=== PATIENT | male | born 1960 | race American Indian/Alaskan Native ===

== ENCOUNTER 2019-07-15 02:26 | Emergency (ER) | payer MEDICARE ==
[2019-07-15] MEDS ORDERED: HYDROcodone/ACETAMINOPHEN 5-325 MG TAB PO STA (06:28)
--- NOTE | 2019-07-15 06:48 | Emergency Department Report ---
ED Extremity Problem HPI - General Chief complaint: Extremity Injury, Lower Stated complaint: RT LEG PAIN Time Seen by Provider: 07/15/19 06:27 Source: patient, EMS Mode of arrival: Wheelchair Limitations: Physical Limitation - History of Present Illness MD Complaint: extremity pain -: Sudden, hour(s) (5) Location: right History of Same: No -: Yes myalgia Severity scale (0 -10): 6 Consistency: constant Improves with: nothing Worsens with: nothing Associated Symptoms: denies: chest pain, shortness of breath, myalgias, arthralgias - Related Data Previous Rx's Medication Instructions Recorded Last Taken Type Ketorolac [Toradol] 10 mg PO Q6H PRN #10 tablet 07/15/19 Unknown Rx Allergies Allergy/AdvReac Type Severity Reaction Status Date / Time latex Allergy Unknown Verified 07/15/19 02:31 ED Review of Systems ROS: Stated complaint: RT LEG PAIN Other details as noted in HPI Comment: All other systems reviewed and negative ED Past Medical Hx - Past Medical History Previous Medical History?: Yes Hx Hypertension: Yes - Surgical History Past Surgical History?: Yes Additional Surgical History: right AKA - Social History Smoking Status: Never Smoker Substance Use Type: Alcohol - Medications Home Medications: Home Medications Medication Instructions Recorded Confirmed Last Taken Type Ketorolac [Toradol] 10 mg PO Q6H PRN #10 tablet 07/15/19 Unknown Rx ED Physical Exam - General Limitations: Physical Limitation General appearance: alert, in no apparent distress - Head Head exam: Present: atraumatic, normocephalic - Eye Eye exam: Present: normal appearance - ENT ENT exam: Present: mucous membranes moist - Neck Neck exam: Present: normal inspection - Respiratory Respiratory exam: Present: normal lung sounds bilaterally. Absent: respiratory distress - Cardiovascular Cardiovascular Exam: Present: regular rate, normal rhythm. Absent: systolic murmur, diastolic murmur, rubs, gallop - GI/Abdominal GI/Abdominal exam: Present: soft, normal bowel sounds - Rectal Rectal exam: Present: deferred - Extremities Exam Extremities exam: Present: normal inspection, tenderness (and the base of the stump with palpation. There is no swelling, no cellulitis, no warmth. No fluctuance. No broken skin no rashes) - Back Exam Back exam: Present: normal inspection. Absent: CVA tenderness (R), CVA tenderness (L) - Neurological Exam Neurological exam: Present: alert, oriented X3, CN II-XII intact - Psychiatric Psychiatric exam: Present: normal affect, normal mood - Skin Skin exam: Present: warm, dry, intact, normal color. Absent: rash ED Course Vital Signs 07/15/19 07/15/19 07/15/19 02:31 02:32 06:35 Pulse Rate 74 Respiratory 18 16 Rate Blood Pressure 180/106 O2 Sat by Pulse 98 Oximetry Critical care attestation.: If time is entered above; I have spent that time in minutes in the direct care o f this critically ill patient, excluding procedure time. ED Disposition Clinical Impression: Amputation stump pain Disposition: DC-01 TO HOME OR SELFCARE Is pt being admited?: No Does the pt Need Aspirin: No Condition: Stable Additional Instructions: Residual limb pain Residual limb pain, sometimes called stump pain, is a type of pain felt in the part of a limb that remains after an amputation. It occurs in about half of people who have had an amputation. It may occur soon after the surgery, often within the first week, but may also last beyond healing. Residual limb pain usually isn't severe, but it may feel: Pressing Throbbing Burning Squeezing Stabbing In some people, the residual limb may move uncontrollably in small or significant ways. Residual limb pain is different from phantom pain, which is pain that seems to come from an amputated limb. But residual limb pain and phantom pain often occur together. Research shows that more than half of people with phantom pain also have residual limb pain. Residual limb pain may be caused by: Problems in the bone or the soft tissue Infection Poor blood supply to the limb A tumor Problems with the fit or use of a prosthesis Request an Appointment at [facility] Diagnosis It's important to get an accurate diagnosis and identify the cause of your residual limb pain, as some causes may be reversible. Tests and procedures used to diagnose residual limb pain may include: Physical exam. Your doctor will likely inspect your residual limb and feel it to check for skin breakdown, pressure sores and problems with the bone. He or she will also look for signs of infection and masses. Your doctor may also tap on your residual limb to check for symptoms of pain that indicate a tangle of nerve endings that can form after amputation (neuroma). Imaging tests. MRI, CT scan, X-rays or ultrasound may be used to help rule out other possible causes for your pain or to confirm your doctor's suspicions. These tests may identify fractures, bone bruises and other bone abnormalities, tumors, and infection. Blood tests. You may need some blood tests to help rule out other possible causes for your pain or to confirm your doctor's suspicions. Treatment Treatment for residual limb pain focuses on treating the underlying cause of the pain, if possible. In about half of people with residual limb pain, the pain eventually improves without treatment. Treatment options for residual limb pain may involve medications, including Pain relievers. Acetaminophen (Tylenol, others) and nonsteroidal anti- inflammatory drugs may help. Stronger medications, such as opioids, may be nee ded. These may be most helpful for pain resulting from problems with the skin, soft tissues, muscles and bones. Antidepressants. Tricyclic antidepressants or selective norepinephrine reuptake inhibitors may help with pain caused by damage to the nerve fibers. Anticonvulsants. Gabapentin (Gralise, Neurontin) and pregabalin (Lyrica) may help relieve pain caused by damage to the nerve fibers. It's thought that these drugs interfere with the transmission of nerve signals to reduce pain. A-duvupd-W-aspartic acid (NMDA) agonists. These drugs, including ketamine, block events that increase sensitivity in the neurons. They're usually given as topical medications applied to your skin. While they're very effective in reducing pain, the benefits don't last very long. They can also cause significant side effects. Other treatment options include: Physical and occupational therapy. These therapies involve exercises done before and after amputation, as well as proper fitting and use of your prosthesis. Wearing compression garments on the residual limb may also help. Massage. Gentle massaging of the limb can sometimes reduce pain. Hypnosis. A small study found that three sessions of hypnosis reduced residual limb pain in people with the condition. Nerve blocks. These injections block or turn off a nerve's pain signals. They can help reduce residual limb pain and may help to diagnose a neuroma if the block stops the pain. Neuromodulation. These treatments use electrical stimulation on a nerve to relieve pain. Spinal cord stimulation (SCS), peripheral nerve stimulation (PNS) and transcutaneous electrical nerve stimulation (TENS) are some of the therapies that may be used to help relieve residual limb pain. Prescriptions: Ketorolac [Toradol] 10 mg PO Q6H PRN #10 tablet PRN Reason: Pain Referrals: RUPA YOO MD [Staff Physician] - 3-5 Days
[2019-07-15 07:09] VITALS: BP 142/94
== END 2019-07-15 07:06 | disposition home or self-care (01) ==
LOC: ED 02:26
DX: T87.9 Unspecified complications of amputation stump (principal); I10 Essential (primary) hypertension; Z98.890 Other specified postprocedural states; Z79.899 Other long term (current) drug therapy
CPT/HCPCS: 99282